=== PATIENT | female | born 1970 | race Caucasian/White ===

== ENCOUNTER 2025-05-24 10:12 | Emergency (ER) | payer MEDICAID, OTHER ==
[~2025-05-24] VITALS: Ht 160 cm; Wt 65.3 kg
[2025-05-24] MEDS ORDERED: IPRATROPIUM BROMIDE 0.5 MG/2.5 ML NEBU ONE (10:53)
[2025-05-24] MEDS ORDERED: ALBUTEROL SULFATE 2.5 MG/3 ML NEBU ONE (10:54)
[2025-05-24 11:04] VITALS: O2SAT 96
[2025-05-24] MEDS: ALBUTEROL SULFATE 2.5 MG/ 0.5 ML NEBU NEB ONE (11:04)
[2025-05-24] MEDS: IPRATROPIUM BROMIDE 0.5 MG/2.5 ML NEBU NEB ONE (11:04)
[2025-05-24 11:13] LABS: PLATELET COUNT (AUTO) 452 K/uL (179-408); RED BLOOD CELL COUNT(AUTO) 4.11 MIL/uL (3.63-4.92); RED CELL DISTRIBUTION WIDTH 13.5 % (12.3-17.7); WHITE BLOOD COUNT (AUTO) 14.7 K/uL (3.8-11.8)
[2025-05-24 11:33] LABS: CREATININE 0.4 mg/dL (0.6-1.3); SODIUM SERUM 138 mmol/L (136-145); UREA NITROGEN, BLOOD 11 mg/dL (7-18)
[2025-05-24 12:00] VITALS: O2SAT 97
[2025-05-24] MEDS ORDERED: CEFTRIAXONE /D5W 50ML IVPB **ER PYXIS IV ONE (12:34)
[2025-05-24 12:51] VITALS: BP 125/68
[2025-05-24] MEDS: AZITHROMYCIN IV 500 MG in IV DEXTROSE 5% 250 ML IV ONE (13:04)
[2025-05-24] MEDS ORDERED: ALBU18HF2 INH (13:20)
[2025-05-24] MEDS ORDERED: [UNRECOGNIZED DRUG - SUPPLY] (13:20)
[2025-05-24] MEDS ORDERED: GUAI5SYR4 PO (13:20)
[2025-05-24] MEDS ORDERED: AZIT250T13 PO (13:20)
[2025-05-24] MEDS ORDERED: CEFD300C3 PO (13:20)
[2025-05-24 14:35] VITALS: BP 125/68; O2SAT 95
== END 2025-05-24 14:36 | disposition home or self-care (01) ==
LOC: ER 10:12
DX: J45.901 Unspecified asthma with (acute) exacerbation (principal); J18.9 Pneumonia, unspecified organism; J98.11 Atelectasis
CPT/HCPCS: 99285; 71045; 80048; 85025; 36415; 94644; J0696; 94760; A4606; A4663; J3590